=== PATIENT | female | born 1990 | race Caucasian/White ===

== ENCOUNTER 2016-11-04 20:00 | Observation (INO) | payer MEDICAID ==
[2016-11-04] MEDS ORDERED: TERBUTALINE 1 MG/ML, 1ML ONE (20:37)
[2016-11-04] MEDS ORDERED: LACTATED RINGERS 1,000 ML IV SCH (20:38)
[2016-11-04] MEDS ORDERED: KETOROLAC 30 MG/1 ML ONE (20:59)
[2016-11-04] MEDS ORDERED: KETOROLAC 30 MG/1 ML IVPush SCH (21:00)
[2016-11-04] MEDS ORDERED: TERBUTALINE 1 MG/ML, 1ML IVPush PRN (21:00)
== END 2016-11-04 22:20 | disposition home or self-care (01) ==
LOC: LDOP 20:00 → LDIP 21:02
PROVIDERS: ADMIT Obstetrics & Gynecology Female Pelvic Medicine and Reconstructive Surgery; ATTEND Obstetrics & Gynecology Female Pelvic Medicine and Reconstructive Surgery
DX: O62.9 Abnormality of forces of labor, unspecified (principal); O46.92 Antepartum hemorrhage, unspecified, second trimester; Z3A.26 26 weeks gestation of pregnancy
CPT/HCPCS: 59025; 81003; 87086; 96361; 96374; 96375; 99211; G0378; J1885; J3105; J7120; 96360; 96372; G0463

== ENCOUNTER 2017-09-06 17:26 | Emergency (ER) | payer MEDICAID, OTHER ==
[~2017-09-06] VITALS: Ht 160 cm; Wt 58.3 kg
[2017-09-06] MEDS ORDERED: SODIUM CHLORIDE FLUSH 10ML SYR IVF ONE (18:00)
[2017-09-06] MEDS ORDERED: SODIUM CHLORIDE 0.9% 1,000ML IVBOLUS ONE (18:00)
[2017-09-06 18:24] LABS: BASOPHILS # (AUTO) 0.08 x10^3/uL (0-0.1); BASOPHILS % (AUTO) 1 % (0-1); EOSINOPHILS # (AUTO) 0.03 x10^3/uL (0-0.4); EOSINOPHILS % (AUTO) 1 % (1-7); LYMPHOCYTES # (AUTO) 2.34 x10^3/uL (1-3.4); LYMPHOCYTES % (AUTO) 41 % (22-44); MD NO; MEAN CORPUSCULAR HEMOGLOBIN 25.2 pg (27.0-34.8); MEAN CORPUSCULAR HGB CONC 32.3 g/dL (32.4-35.8); MEAN CORPUSCULAR VOLUME 78.1 fL (80-100); MONOCYTES # (AUTO) 0.28 x10^3/uL (0.2-0.8); MONOCYTES % (AUTO) 5 % (2-9); NEUTROPHILS # (AUTO) 3.03 x10^3/uL (1.8-6.8); NEUTROPHILS % (AUTO) 53 % (42-75); PLATELET COUNT 408 x10^3/uL (130-400); RED BLOOD COUNT 4.89 x10^6/uL (3.82-5.3)
[2017-09-06 18:35] LABS: ALBUMIN 4.1 g/dL (3.4-5.0); ANION GAP 6 mmol/L (5-15); CALCIUM 8.5 mg/dL (8.5-10.1); CHLORIDE 107 mmol/L (98-107)
[2017-09-06 18:38] LABS: CREATININE 0.99 mg/dL (0.55-1.02)
[2017-09-06 21:50] VITALS: BP 112/64
== END 2017-09-06 21:53 | disposition home or self-care (01) ==
LOC: ED 21:45
DX: R42 Dizziness and giddiness (principal); Z90.49 Acquired absence of other specified parts of digestive tract
CPT/HCPCS: 36415; 80048; 82040; 84703; 85025; 93005; 99285